=== PATIENT | male | born 1990 | race Caucasian/White ===

== ENCOUNTER 2018-08-09 19:13 | Emergency (ER) | payer OTHER ==
[2018-08-09 19:42] VITALS: BP 153/99
[2018-08-09] MEDS ORDERED: TYLENOL ONE (19:49)
[2018-08-09] MEDS ORDERED: TYLENOL PO ONE (19:51)
[2018-08-10] MEDS ORDERED: BENTYL PO ONE (00:23)
[2018-08-10] MEDS ORDERED: ZOFRAN ODT PO ONE (00:23)
[2018-08-10] MEDS ORDERED: ALUM-MAG HYDROX-SIMETH 200-200-20MG/5ML PO ONE (00:24)
[2018-08-10] MEDS ORDERED: LIDOCAINE VISCOUS 2% PO ONE (00:24)
[2018-08-10] MEDS ORDERED: NACL 0.9% 1000 ML 1,000 ML IV ONE (00:26)
--- NOTE | 2018-08-10 00:27 | Emergency Department Report ---
ED Headache HPI - General Chief Complaint: Headache Stated Complaint: H/A Time Seen by Provider: 08/09/18 23:40 Source: patient, family Exam Limitations: no limitations - History of Present Illness Initial Comments: Patient here complaining the headache today vomited 1. Pain is located on the right side of his at 7 out of 10. He denies any head injury. He also said he has a little bit of stomach upset to his epigastric area after eating some oatmeal and rice. Denies any diarrhea. Pain is still out of 10 cramping. Denies any urinary burning frequency or urgency. Denies any back pain. Headache is achy. He does not have a primary care physician as has a history of high blood pressure and wanted be treated for his high blood pressure but he has never been on any medication that he can let me know what he was on. Patient and blood pressure is 153/99. Denies any neck pain or stiffness. Denies any dizziness or visual difficulties. Denies any chest pain or shortness of breath. Denies any swelling to his legs Timing/Duration: 4-6 hours, waxing and waning Quality: severe, achy Head Injury Location: frontal Recent Head Trauma: no recent headache/trauma Modifying Factors: improves with: movement, rest Associated Symptoms: nausea/vomiting, other (stomach cramping and epigastric area). denies: confusion, fatigue, facial pain, fever/chills, flushing, loss of consciousness, nasal congestion, nasal drainage, numbness in legs/feet, rash , seizures, sinus infection, stiff neck, vision changes, weakness Allergies/Adverse Reactions: Allergies shrimp Allergy (Verified 08/09/18 19:44) Hives Home Medications: Ambulatory Orders Acetaminophen 500 mg PO Q8H PRN #12 tablet 08/10/18 Dicyclomine [Bentyl] 40 mg PO QID 3 Days #12 tablet 08/10/18 Famotidine [Pepcid] 40 mg PO QDAY 10 Days #10 tablet 08/10/18 Ondansetron [Zofran Odt] 4 mg PO Q6H PRN #20 tab.rapdis 08/10/18 ED Review of Systems ROS: Stated complaint: H/A Other details as noted in HPI Constitutional: denies: chills, fever Eyes: denies: eye pain, eye discharge, vision change ENT: denies: ear pain, throat pain, epistaxis, congestion Respiratory: denies: cough, shortness of breath, SOB with exertion, SOB at rest , stridor, wheezing Cardiovascular: denies: chest pain, palpitations, edema, syncope, paroxysmal nocturnal dyspnea Gastrointestinal: abdominal pain, nausea, vomiting. denies: diarrhea, constipation, hematemesis, melena, hematochezia Genitourinary: denies: urgency, dysuria, hematuria, discharge Musculoskeletal: denies: back pain, joint swelling, arthralgia, myalgia Skin: denies: rash, lesions Neurological: headache. denies: weakness, numbness, paresthesias, abnormal gait , vertigo Hematological/Lymphatic: denies: easy bleeding, easy bruising ED Past Medical Hx - Past Medical History Previous Medical History?: Yes Hx Hypertension: Yes - Surgical History Past Surgical History?: No - Family History Family history: hypertension - Social History Smoking Status: Former Smoker Substance Use Type: Alcohol - Medications Home Medications: Home Medications Medication Instructions Recorded Confirmed Last Taken Type Acetaminophen 500 mg PO Q8H PRN #12 tablet 08/10/18 Unknown Rx Dicyclomine [Bentyl] 40 mg PO QID 3 Days #12 tablet 08/10/18 Unknown Rx Famotidine [Pepcid] 40 mg PO QDAY 10 Days #10 tablet 08/10/18 Unknown Rx Ondansetron [Zofran Odt] 4 mg PO Q6H PRN #20 tab.rapdis 08/10/18 Unknown Rx ED Physical Exam - General Limitations: No Limitations General appearance: alert, in no apparent distress - Head Head exam: Present: atraumatic, normocephalic, normal inspection, other - Eye Eye exam: Present: normal appearance (normal exam), PERRL, EOMI. Absent: nystagmus, periorbital swelling, periorbital tenderness Pupils: Present: normal accommodation - ENT ENT exam: Present: normal exam, normal orophraynx, mucous membranes moist, TM's normal bilaterally, normal external ear exam - Neck Neck exam: Present: normal inspection, full ROM, other (no C-spine tenderness). Absent: tenderness, lymphadenopathy - Respiratory Respiratory exam: Present: normal lung sounds bilaterally. Absent: respiratory distress, chest wall tenderness - Cardiovascular Cardiovascular Exam: Present: normal rhythm, tachycardia, normal heart sounds. Absent: systolic murmur, diastolic murmur - GI/Abdominal GI/Abdominal exam: Present: soft, normal bowel sounds. Absent: distended, tenderness, guarding, rebound, rigid, organomegaly, mass, bruit, pulsatile mass , hernia - Extremities Exam Extremities exam: Present: normal inspection, full ROM, normal capillary refill , other (No cce. + 2 pulses in all extremities, no neurovascular compromise). Absent: tenderness, pedal edema, joint swelling, calf tenderness - Back Exam Back exam: Present: normal inspection, full ROM, other (ambulates without any difficulties). Absent: tenderness, CVA tenderness (R), CVA tenderness (L), muscle spasm, paraspinal tenderness, vertebral tenderness, rash noted - Neurological Exam Neurological exam: Present: alert, oriented X3, normal gait, reflexes normal. Absent: motor sensory deficit - Expanded Neurological Exam Expanded Neurological exam: Absent: innattentive, memory loss-remote event, memory loss- recent event, ataxia, receptive aphasia, expressive aphasia, total aphasia, tremor, protecting the airway Patient oriented to: Present: person, place, time Speech: Present: fluid speech Cranial nerves: EOM's Intact: Normal, Gag Reflex: Normal, Tongue Deviation: Normal, Nystagmus: Normal, Facial Sensation: Normal Cerebellar function: Romberg: Normal Upper motor neuron: Pronator Drift: Normal, Sensory Extinction: Normal Sensory exam: Upper Extremity Light Touch: Normal, Upper Extremity Temperature: Normal, UE 2 Point Discrimination: Normal, Lower Extremity Light Touch: Normal, Lower Extremity Temperature: Normal, LE 2 Point Discrimination: Normal Motor strength exam: RUE: 5, LUE: 5, RLE: 5, LLE: 5 Best Eye Response ([place]): (4) open spontaneously Best Motor Response ([place]): (6) obeys commands Best Verbal Response ([place]): (5) oriented [place] Total: 15 - Psychiatric Psychiatric exam: Present: normal affect, normal mood - Skin Skin exam: Present: warm, dry, intact, normal color. Absent: rash ED Course Vital Signs 08/09/18 08/09/18 19:30 19:44 Temperature 99.0 F 99 F Pulse Rate 114 H 111 H Respiratory 18 18 Rate Blood Pressure 153/99 153/99 O2 Sat by Pulse 95 Oximetry Vital Signs 10/07/18 10/07/18 10/08/18 19:30 19:44 02:39 Temperature 99.0 F 99 F Pulse Rate 114 H 111 H 78 Respiratory 18 18 Rate Blood Pressure 153/99 153/99 O2 Sat by Pulse 95 Oximetry - Reevaluation(s) Reevaluation #1: 08/10/18 00:23 Patient given Zofran 8 mg ODT for nausea and Bentyl 40 mg by mouth for stomach upset. Lidocaine 15 mL and Maalox 30 mL for stomach upset and will be started on normal saline. Reevaluation #2: 08/10/18 01:21 Patient is stable and in no acute distress. Reevaluation #3: 08/10/18 01:46 Patient reports that he is feeling better after IV fluid and medication given. Still awaiting CT scan. Reevaluation #4: 08/10/18 02:38 Patient is stable and studies feeling better. CT scan with normal exam ED Medical Decision Making - Radiology Data Radiology results: report reviewed CT scan of the brain and had without contrast dictated by radiologist and report reviewed by myself. Report reviewed normal exam. - Medical Decision Making This is a 28-year-old male here complaining a headache and abdominal cramping after eating rice and oatmeal. He said he has a history of high blood pressure and wanted to be treated for his blood pressure in the emergency room because he does not have a primary care. Blood pressure was 153/99. CT scan of the head and brain without contrast dictated by radiologist and reported to myself and no acute findings. Assessment/plan Headache-better with normal saline 1 L. Received Tylenol 650 mg in triage area. Will be sent home on Tylenol plain Abdominal cramp-better with Maalox 30 mL and lidocaine 15 mL. He also received Bentyl 40 mg. Patient will be sent home on Pepcid and Bentyl. Nausea and vomiting -better with Zofran 8 mg ODT and he will be sent home on Zofran and Pepcid Resuscitation via seismic interpreter is diagnosis, CT scan finding and that he needs to follow up with primary care doctor and if he does not have access he needs to go to [facility] for management of chronic hypertension. Information given and DASH diet and high blood pressure. Patient is stable, vital signs are stable he is afebrile and the studies feel a lot better discharged home with prescription for Zofran, Pepcid, Tylenol plain and Bentyl. He is to follow-up with primary care physician in one to 2 days and also I gave him referral to Dr. Macedo for neurology consult - Differential Diagnosis intracranial abnormality, gastroenteritis Critical care attestation.: If time is entered above; I have spent that time in minutes in the direct care of this critically ill patient, excluding procedure time. ED Disposition Clinical Impression: Elevated blood pressure reading with diagnosis of hypertension, Stomach cramps Headache Qualifiers: Headache type: unspecified Headache chronicity pattern: unspecified pattern Intractability: not intractable Qualified Code(s): R51 - Headache Nausea & vomiting Qualifiers: Vomiting type: unspecified Vomiting Intractability: non-intractable Qualified Code(s): R11.2 - Nausea with vomiting, unspecified Disposition: TO HOME OR SELFCARE Is pt being admited?: No Does the pt Need Aspirin: No Condition: Stable Instructions: Gastroenteritis (ED), Acute Headache (ED), Acute Nausea and Vomiting (ED), Abdominal Pain (ED), DASH Eating Plan (ED), Hypertension (ED) Additional Instructions: He is follow-up with outside [facility] regarding your headache and to manage your high blood pressure see referral to neurologist regarding blood pressure management Keep a log a few blood pressure daily preferably when you wake up in the morning and and record it take to primary care physician for evaluation. Take medication as prescribed for nausea and stomach upset if your condition worsens, return to the emergency room Prescriptions: Acetaminophen 500 mg PO Q8H PRN #12 tablet PRN Reason: pain Dicyclomine [Bentyl] 40 mg PO QID 3 Days #12 tablet Famotidine [Pepcid] 40 mg PO QDAY 10 Days #10 tablet Ondansetron [Zofran Odt] 4 mg PO Q6H PRN #20 tab.rapdis PRN Reason: Nausea And Vomiting Referrals: SERGO MACEDO MD [Staff Physician] - 08/12/18 [facility] [Outside] - 08/12/18 PRIMARY MD DARIO [Primary Care Provider] - 08/12/18 Forms: Work/School Release Form(ED)
--- NOTE | 2018-08-10 01:58 | Cat Scan Report ---
FINAL REPORT PROCEDURE: CT HEAD/BRAIN WO CON TECHNIQUE: Computerized tomography of the head was performed without contrast material. HISTORY: headache with vomiting ?1 COMPARISON: No prior studies are available for comparison. FINDINGS: Skull and scalp: Normal. Paranasal sinuses: Normal. Ventricles and subarachnoid spaces: Normal. Cerebrum: No evidence of hemorrhage, acute infarction or mass . Cerebellum and brainstem: No evidence of hemorrhage, acute infarction or mass. Vasculature: Normal. Comments: None. IMPRESSION: Normal Examination
== END 2018-08-10 02:56 | disposition home or self-care (01) ==
LOC: ED 19:13
DX: R03.0 Elevated blood-pressure reading, without diagnosis of hypertension (principal); R11.2 Nausea with vomiting, unspecified; R10.13 Epigastric pain; I10 Essential (primary) hypertension; Z87.891 Personal history of nicotine dependence
CPT/HCPCS: 70450; 99283; J7030; Q0162

== ENCOUNTER 2019-04-11 21:05 | Emergency (ER) | payer OTHER ==
--- NOTE | 2019-04-11 21:14 | Emergency Department Report ---
Blank Doc - Documentation Documentation: This is a 28-year-old male that presents with abdominal pain with n/v. This initial assessment/diagnostic orders/clinical plan/treatment(s) is/are subject to change based on patient's health status, clinical progression and re- assessment by fellow clinical providers in the ED. Further treatment and workup at subsequent clinical providers discretion. Patient/guardians urged not to elope from the ED as their condition may be serious if not clinically assessed and managed. Initial orders include: 1- Patient sent to [facility] for further evaluation and treatment 2- labs 3- UA
[2019-04-11 21:16] VITALS: BP 138/89
[2019-04-11] MEDS ORDERED: NACL 0.9% 1000 ML 1,000 ML IV ONE (21:41)
[2019-04-11] MEDS ORDERED: ZOFRAN IV ONE (21:41)
[2019-04-11 21:43] LABS: Basophils % (Auto) 0.7 % (0.0-1.8); Eosinophils # (Auto) 0.1 K/mm3 (0.0-0.4); Hematocrit 42.2 % (35.5-45.6); Hemoglobin 14.4 gm/dl (11.8-15.2); Lymphocytes # (Auto) 1.7 K/mm3 (1.2-5.4); Lymphocytes % (Auto) 32.2 % (13.4-35.0); Mean Corpuscular HGB Conc 34 % (32-34); Mean Corpuscular Volume 72 fl (84-94); Monocytes # (Auto) 0.6 K/mm3 (0.0-0.8); Monocytes % (Auto) 10.5 % (0.0-7.3); Platelet Count 265 K/mm3 (140-440); Red Blood Count 5.89 M/mm3 (3.65-5.03); Red Cell Distribution Width 14.5 % (13.2-15.2)
[2019-04-11 21:44] LABS: Bilirubin,Urine NEG (Negative); Blood,Urine NEG (Negative); Color,Urine Yellow (Yellow); Protein,Urine <15 mg/dL mg/dL (Negative); Urobilinogen,Urine < 2.0 mg/dL (<2.0); WBC,Urine < 1.0 /HPF (0.0-6.0)
[2019-04-11 21:57] LABS: Alanine Aminotransferase 56 units/L (7-56); Albumin 4.4 g/dL (3.9-5); BUN/Creatinine Ratio 19; Blood Urea Nitrogen 15 mg/dL (9-20); Hemolysis Index 22
--- NOTE | 2019-04-11 22:25 | Emergency Department Report ---
ED Abdominal Pain HPI - General Chief Complaint: Abdominal Pain Stated Complaint: ABD PAIN/HEADACHE Time Seen by Provider: 04/11/19 21:13 Source: patient Mode of arrival: Ambulatory Limitations: No Limitations - History of Present Illness Initial Comments: This is a 28-year-old male with hx of htn and PUD, no take ppi or h2 blockers at this time. that presents with abdominal pain with n/v x today, LUQ, with nausea and vomiting, last n/v this afternoon last po intake this afternoon, pain is 5/10 aching LUQ and LLQ pt denies fever . MD Complaint: abdominal pain Onset/Timin -: days(s) Location: LUQ, LLQ Radiation: LUQ, LLQ Migration to: LLQ Severity: moderate Severity scale (0 -10): 5 Quality: cramping, aching Consistency: constant Improves With: nothing Worsens With: eating Context: other (PUD) Associated Symptoms: nausea, vomiting. denies: diarrhea, fever, chills, constipation, dysuria, hematemesis, melena, hematuria, syncope - Related Data Previous Rx's Medication Instructions Recorded Last Taken Type Acetaminophen 500 mg PO Q8H PRN #12 tablet 08/10/18 Unknown Rx Dicyclomine [Bentyl] 40 mg PO QID 3 Days #12 tablet 08/10/18 Unknown Rx Famotidine [Pepcid] 40 mg PO QDAY 10 Days #10 tablet 08/10/18 Unknown Rx Ondansetron [Zofran Odt] 4 mg PO Q6H PRN #20 tab.rapdis 08/10/18 Unknown Rx Dicyclomine [Bentyl] 20 mg PO QID #10 tablet 03/15/19 Unknown Rx Diphenoxylate/Atropine [Lomotil] 1 tab PO Q4H PRN #10 tablet 03/15/19 Unknown Rx Famotidine [Pepcid] 20 mg PO BID #20 tablet 03/15/19 Unknown Rx Ondansetron [Zofran Odt] 4 mg PO Q8HR #10 tab.rapdis 03/15/19 Unknown Rx Dicyclomine [Bentyl] 10 mg PO QID PRN #30 capsule 04/11/19 Unknown Rx Omeprazole 20 mg PO DAILY #30 tablet. 04/11/19 Unknown Rx Ondansetron [Zofran Odt] 4 mg PO Q8HR PRN #12 tab.rapdis 04/11/19 Unknown Rx Allergies Allergy/AdvReac Type Severity Reaction Status Date / Time shellfish derived Allergy Hives Verified 04/11/19 21:14 shrimp Allergy Hives Verified 08/09/18 19:44 ED Review of Systems ROS: Stated complaint: ABD PAIN/HEADACHE Other details as noted in HPI ED Past Medical Hx - Past Medical History Previous Medical History?: Yes Hx Hypertension: Yes Additional medical history: PUD - Surgical History Past Surgical History?: No - Social History Smoking Status: Never Smoker Substance Use Type: None - Medications Home Medications: Home Medications Medication Instructions Recorded Confirmed Last Taken Type Acetaminophen 500 mg PO Q8H PRN #12 tablet 08/10/18 Unknown Rx Dicyclomine [Bentyl] 40 mg PO QID 3 Days #12 tablet 08/10/18 Unknown Rx Famotidine [Pepcid] 40 mg PO QDAY 10 Days #10 tablet 08/10/18 Unknown Rx Ondansetron [Zofran Odt] 4 mg PO Q6H PRN #20 tab.rapdis 08/10/18 Unknown Rx Dicyclomine [Bentyl] 20 mg PO QID #10 tablet 03/15/19 Unknown Rx Diphenoxylate/Atropine [Lomotil] 1 tab PO Q4H PRN #10 tablet 03/15/19 Unknown Rx Famotidine [Pepcid] 20 mg PO BID #20 tablet 03/15/19 Unknown Rx Ondansetron [Zofran Odt] 4 mg PO Q8HR #10 tab.rapdis 03/15/19 Unknown Rx Dicyclomine [Bentyl] 10 mg PO QID PRN #30 capsule 04/11/19 Unknown Rx Omeprazole 20 mg PO DAILY #30 tablet. 04/11/19 Unknown Rx Ondansetron [Zofran Odt] 4 mg PO Q8HR PRN #12 tab.rapdis 04/11/19 Unknown Rx ED Physical Exam - General Limitations: No Limitations General appearance: alert, in no apparent distress - Head Head exam: Present: atraumatic, normocephalic, normal inspection - Eye Eye exam: Present: normal appearance, PERRL, EOMI Pupils: Present: normal accommodation - ENT ENT exam: Present: normal orophraynx, mucous membranes moist - Neck Neck exam: Present: normal inspection, full ROM. Absent: tenderness, meningismus, lymphadenopathy, thyromegaly - Respiratory Respiratory exam: Present: normal lung sounds bilaterally. Absent: respiratory distress, wheezes, stridor, chest wall tenderness - Cardiovascular Cardiovascular Exam: Present: regular rate, normal rhythm, normal heart sounds. Absent: systolic murmur, diastolic murmur, rubs, gallop - GI/Abdominal GI/Abdominal exam: Present: soft, distended, tenderness (LUQ LLQ ), normal bowel sounds. Absent: guarding, rebound, rigid, organomegaly, bruit, hernia - Rectal Rectal exam: Present: deferred - Extremities Exam Extremities exam: Present: normal inspection, full ROM, normal capillary refill. Absent: tenderness, pedal edema - Back Exam Back exam: Present: normal inspection, full ROM. Absent: tenderness, CVA tenderness (R), CVA tenderness (L), muscle spasm, paraspinal tenderness, rash noted - Neurological Exam Neurological exam: Present: alert, oriented X3, CN II-XII intact, normal gait - Psychiatric Psychiatric exam: Present: normal affect, normal mood - Skin Skin exam: Present: warm, dry, intact, normal color. Absent: rash ED Course Vital Signs 04/11/19 21:14 Temperature 97.9 F Pulse Rate 91 H Respiratory 18 Rate Blood Pressure 138/89 ED Medical Decision Making - Lab Data Result diagrams: 04/11/19 21:23 04/11/19 21:23 - Radiology Data Radiology results: report reviewed, image reviewed Ordering Physician: EDWIN RICHARDSON NP Date of Service: 04/11/19 Procedure(s): CT abdomen pelvis wo con Accession Number(s): [id number] cc: EDWIN RICHARDSON NP PROCEDURE: CT ABDOMEN PELVIS WO CON TECHNIQUE: Computerized axial tomography of the abdomen and pelvis was performed without intravenous contrast. This study is performed without intravascular contrast material and its sensitivity for abdominal and pelvic pathology, including neoplasms, inflammation, abscess, free fluid, thrombosis, arterial dissection and infarction, is reduced compared with a contrast enhanced study. HISTORY: upper abd pain COMPARISONS: None . FINDINGS: Visualized lower thorax: No significant abnormality. Liver: Normal size and attenuation. Spleen: Normal size and attenuation. Gallbladder and biliary system: Normal. Pancreas: Normal. Adrenals: Normal. Kidneys: Normal. GI tract: The stomach is normal. The small bowel has normal caliber without obstruction. No ileus or enteritis. Cecum, appendix and colon are normal . Lymph nodes and mesentery: Normal. Vasculature: Normal.. Bladder: Normal. Reproductive organs: Normal. Peritoneum: No free fluid. Musculoskeletal structures: No significant abnormality. Other: None. IMPRESSION: Normal examination of the abdomen and pelvis . This document is electronically signed by Jessi Ackerman DO., April 11 2019 11:37:40 PM ET Transcribed By: [facility] Dictated By: JESSI ACKERMAN MD Electronically Authenticated By: JESIS ACKERMAN MD Signed Date/Time: 04/11/192338 DD/ 33 TD/TT: 04/11/192333 - Medical Decision Making CT scan si normal no obstruction or bleeding , pt has hx of pud, pain is now improved plan, carafate, omeprozole, bentyl follow up with pcp in 2-3 days given referral to [facility], and [facility] pt verbalized agreement and understanding of discharge plan, pt for dc to home in stable condition at this time. Critical care attestation.: If time is entered above; I have spent that time in minutes in the direct care of this critically ill patient, excluding procedure time. ED Disposition Clinical Impression: Nausea and vomiting Qualifiers: Vomiting type: unspecified Vomiting Intractability: non-intractable Qualified Code(s): R11.2 - Nausea with vomiting, unspecified Abdominal pain Qualifiers: Abdominal location: lower abdomen, unspecified Qualified Code(s): R10.30 - Lower abdominal pain, unspecified Disposition: DC-01 TO HOME OR SELFCARE Is pt being admited?: No Does the pt Need Aspirin: No Condition: Stable Instructions: Acute Nausea and Vomiting (ED), Abdominal Pain (ED) Prescriptions: Dicyclomine [Bentyl] 10 mg PO QID PRN #30 capsule PRN Reason: abdominal spasm Omeprazole 20 mg PO DAILY #30 tablet. Ondansetron [Zofran Odt] 4 mg PO Q8HR PRN #12 tab.rapdis PRN Reason: Nausea And Vomiting Referrals: SHANTHI DE LA VEGA MD [Primary Care Provider] - 3-5 Days [facility] [Provider Group] - 3-5 Days [facility] [Outside] - 3-5 Days Forms: Work/School Release Form(ED) Time of Disposition: 23:59
--- NOTE | 2019-04-11 23:39 | Cat Scan Report ---
PROCEDURE: CT ABDOMEN PELVIS WO CON TECHNIQUE: Computerized axial tomography of the abdomen and pelvis was performed without intravenous contrast. This study is performed without intravascular contrast material and its sensitivity for ab dominal and pelvic pathology, including neoplasms, inflammation, abscess, free fluid, thrombosis, art erial dissection and infarction, is reduced compared with a contrast enhanced study. HISTORY: upper abd pain COMPARISONS: None . FINDINGS: Visualized lower thorax: No significant abnormality. Liver: Normal size and attenuation. Spleen: Normal size and attenuation. Gallbladder and biliary system: Normal. Pancreas: Normal. Adrenals: Normal. Kidneys: Normal. GI tract: The stomach is normal. The small bowel has normal caliber without obstruction. No ileus or enteritis. Cecum, appendix and colon are normal . Lymph nodes and mesentery: Normal. Vasculature: Normal.. Bladder: Normal. Reproductive organs: Normal. Peritoneum: No free fluid. Musculoskeletal structures: No significant abnormality. Other: None. IMPRESSION: Normal examination of the abdomen and pelvis . This document is electronically signed by Jessi Ackerman DO., April 11 2019 11:37:40 PM ET
== END 2019-04-12 00:09 | disposition home or self-care (01) ==
LOC: ED 21:05
DX: R10.12 Left upper quadrant pain (principal); R10.32 Left lower quadrant pain; R11.2 Nausea with vomiting, unspecified; I10 Essential (primary) hypertension; Z91.013 Allergy to seafood
CPT/HCPCS: 36415; 74176; 80053; 81001; 83690; 85025; 96361; 96374; 99284; J2405; J7030

== ENCOUNTER 2022-03-12 23:42 | Emergency (ER) | payer OTHER ==
[2022-03-13 07:17] LABS: Hematocrit 43.3 % (35.5-45.6); Hemoglobin 13.5 gm/dl (11.8-15.2); Mean Corpuscular HGB Conc 31 % (32-34); Mean Corpuscular Volume 72 fl (84-94); Platelet Count 301 K/mm3 (140-440); Red Blood Count 6.05 M/mm3 (3.65-5.03); Red Cell Distribution Width 15.2 % (13.2-15.2)
[2022-03-13 07:44] LABS: Alanine Aminotransferase 65 units/L (7-56); Albumin 4.6 g/dL (3.9-5); BUN/Creatinine Ratio 13; Blood Urea Nitrogen 10 mg/dL (9-20); Hemolysis Index 5
[2022-03-13] MEDS ORDERED: SODIUM CHLORIDE 0.9% 1000 ML 1,000 ML IV ONE (08:03)
[2022-03-13] MEDS ORDERED: MORPHINE 2 MG/1 ML INJ IM ONE (08:03)
[2022-03-13] MEDS ORDERED: LIDOCAINE VISCOUS 2% 15 ML ORAL LIQD PO ONE (08:05)
--- NOTE | 2022-03-13 08:06 | Emergency Department Report ---
ED General Adult HPI - General Chief complaint: Abdominal Pain Stated complaint: STOMACH PAIN PUI?: No Time Seen by Provider: 03/13/22 07:58 Source: patient Mode of arrival: Ambulatory Limitations: No Limitations - History of Present Illness Initial comments: This is a 31-year-old male who came in today with concerns of epigastric pain which according patient is a burning sensation for the past 1 to 2 days. According patient is worse at nighttime. Patient also endorsed headache and also feeling subjective short of breath. Patient denies any other discomfort such as fever chill night sweat dizziness blurred vision lightheadedness tinnitus ear pain runny nose sore throat loss of taste loss of smell chest pain palpitation cough nausea vomiting diarrhea constipation dysuria myalgia arthralgia new rash and heat or cold intolerance. Severity scale (0 -10): 8 - Related Data Previous Rx's Medication Instructions Recorded Last Taken Type Acetaminophen 500 mg PO Q8H PRN #12 tablet 08/10/18 Unknown Rx Dicyclomine [Bentyl] 40 mg PO QID 3 Days #12 tablet 08/10/18 Unknown Rx Famotidine [Pepcid] 40 mg PO QDAY 10 Days #10 tablet 08/10/18 Unknown Rx Ondansetron [Zofran Odt] 4 mg PO Q6H PRN #20 tab.rapdis 08/10/18 Unknown Rx Dicyclomine [Bentyl] 20 mg PO QID #10 tablet 03/15/19 Unknown Rx Diphenoxylate/Atropine [Lomotil] 1 tab PO Q4H PRN #10 tablet 03/15/19 Unknown Rx Famotidine [Pepcid] 20 mg PO BID #20 tablet 03/15/19 Unknown Rx Ondansetron [Zofran Odt] 4 mg PO Q8HR #10 tab.rapdis 03/15/19 Unknown Rx Dicyclomine [Bentyl] 10 mg PO QID PRN #30 capsule 04/11/19 Unknown Rx Omeprazole 20 mg PO DAILY #30 tablet. 04/11/19 Unknown Rx Ondansetron [Zofran Odt] 4 mg PO Q8HR PRN #12 tab.rapdis 04/11/19 Unknown Rx Omeprazole 20 mg PO DAILY 30 Days #30 03/13/22 Unknown Rx Allergies Allergy/AdvReac Type Severity Reaction Status Date / Time shellfish derived Allergy Intermediate Hives Verified 03/13/22 09:46 shrimp Allergy Hives Verified 03/13/22 09:46 ED Review of Systems ROS: Stated complaint: STOMACH PAIN Other details as noted in HPI Constitutional: no symptoms reported, see HPI Eyes: as per HPI ENT: as per HPI Respiratory: see HPI, shortness of breath. denies: cough, orthopnea, SOB with exertion, SOB at rest, stridor, wheezing Cardiovascular: as per HPI Endocrine: no symptoms reported Gastrointestinal: abdominal pain. denies: nausea, vomiting, diarrhea, co nstipation, hematemesis, melena, hematochezia Musculoskeletal: as per HPI Skin: as per HPI Neurological: as per HPI, headache Psychiatric: as per HPI Hematological/Lymphatic: as per HPI ED Past Medical Hx - Past Medical History Previous Medical History?: Yes Hx Hypertension: Yes Additional medical history: PUD - Social History Smoking Status: Never Smoker Substance Use Type: None - Medications Home Medications: Home Medications Medication Instructions Recorded Confirmed Last Taken Type Acetaminophen 500 mg PO Q8H PRN #12 tablet 08/10/18 Unknown Rx Dicyclomine [Bentyl] 40 mg PO QID 3 Days #12 tablet 08/10/18 Unknown Rx Famotidine [Pepcid] 40 mg PO QDAY 10 Days #10 tablet 08/10/18 Unknown Rx Ondansetron [Zofran Odt] 4 mg PO Q6H PRN #20 tab.rapdis 08/10/18 Unknown Rx Dicyclomine [Bentyl] 20 mg PO QID #10 tablet 03/15/19 Unknown Rx Diphenoxylate/Atropine [Lomotil] 1 tab PO Q4H PRN #10 tablet 03/15/19 Unknown Rx Famotidine [Pepcid] 20 mg PO BID #20 tablet 03/15/19 Unknown Rx Ondansetron [Zofran Odt] 4 mg PO Q8HR #10 tab.rapdis 03/15/19 Unknown Rx Dicyclomine [Bentyl] 10 mg PO QID PRN #30 capsule 04/11/19 Unknown Rx Omeprazole 20 mg PO DAILY #30 tablet. 04/11/19 Unknown Rx Ondansetron [Zofran Odt] 4 mg PO Q8HR PRN #12 tab.rapdis 04/11/19 Unknown Rx Omeprazole 20 mg PO DAILY 30 Days #30 05/11/22 Unknown Rx ED Physical Exam - General Limitations: No Limitations General appearance: alert, in no apparent distress - Head Head exam: Present: atraumatic, normocephalic, normal inspection - Eye Eye exam: Present: normal appearance, PERRL, EOMI - ENT ENT exam: Present: normal exam, mucous membranes moist - Neck Neck exam: Present: normal inspection - Respiratory Respiratory exam: Present: normal lung sounds bilaterally - Cardiovascular Cardiovascular Exam: Present: regular rate, normal rhythm - GI/Abdominal GI/Abdominal exam: Present: soft, tenderness (EPIGASTRIC REGION ON PALPATION; NO TENDERNESS ON RUQ OR RLQ OR LUQ OR LLQ). Absent: distended - Extremities Exam Extremities exam: Present: normal inspection, full ROM - Back Exam Back exam: Present: normal inspection, full ROM - Neurological Exam Neurological exam: Present: alert, altered, oriented X3, CN II-XII intact - Psychiatric Psychiatric exam: Present: normal affect, normal mood - Skin Skin exam: Present: normal color ED Course Vital Signs 03/12/22 03/13/22 03/13/22 23:53 09:43 09:45 Temperature 98.1 F Pulse Rate 102 H 69 Respiratory 16 16 Rate Blood Pressure 137/87 123/84 [Right] O2 Sat by Pulse 98 99 99 Oximetry ED Medical Decision Making - Lab Data Result diagrams: 03/13/22 07:04 03/13/22 07:04 - Medical Decision Making PER PATIENT, SYMPTOMS RESOLVED AFTER THE LIDOCINE AND MAALOX; LABS AND IMAGE ARE UNREMARKABLE. INFORMED TO FOLLOW UP WITH PCP. WILL D/C W/ PPI MEDICATION FOR 30 DAYS. Critical care attestation.: If time is entered above; I have spent that time in minutes in the direct care of this critically ill patient, excluding procedure time. ED Disposition Clinical Impression: GERD (gastroesophageal reflux disease) Disposition: 01 HOME / SELF CARE / HOMELESS Is pt being admited?: No Does the pt Need Aspirin: No Condition: Stable Instructions: Heartburn Additional Instructions: Make a follow-up appointment with your primary care provider to be seen within 3 days for further ER follow-up visit and evaluation. Prescriptions: Omeprazole 20 mg PO DAILY 30 Days #30 Time of Disposition: 10:42
--- NOTE | 2022-03-13 08:31 | XRay Report ---
XR CHEST 1VIEW INDICATION / CLINICAL INFORMATION: Shortness of breath. COMPARISON: None available. FINDINGS: SUPPORT DEVICES: None. HEART /PULMONARY VASCULATURE: No significant abnormality. LUNGS / PLEURA: No significant pulmonary or pleural abnormality. No pneumothorax. ADDITIONAL FINDINGS: No significant additional findings. IMPRESSION: 1. No acute findings. Signer Name: Mau Gasca MD Signed: 03/13/2022 8:26 AM Workstation Name: [id number]
[2022-03-13 09:11] LABS: Bilirubin,Urine NEG (Negative); Blood,Urine NEG (Negative); Color,Urine Colorless (Yellow); Protein,Urine <15 mg/dL mg/dL (Negative); Urobilinogen,Urine < 2.0 mg/dL (<2.0)
--- NOTE | 2022-03-13 09:20 | Cat Scan Report ---
CT ABDOMEN AND PELVIS WITHOUT CONTRAST INDICATION / CLINICAL INFORMATION: EPIGASTIC PAIN. TECHNIQUE: Axial CT images were obtained through the abdomen and pelvis without IV contrast. All CT scans at this location are performed using CT dose reduction for ALARA by means of automated exposure control. COMPARISON: None available. FINDINGS: LOWER CHEST: No significant abnormality LIVER: Nonspecific mild hepatomegaly, measuring 18.5 cm. GALLBLADDER/BILIARY TREE: No significant abnormality PANCREAS: No significant abnormality SPLEEN: No significant abnormality ADRENALS: No significant abnormality RIGHT KIDNEY / URETER: No significant abnormality LEFT KIDNEY / URETER: No significant abnormality URINARY BLADDER: Bladder is partially decompressed, though grossly unremarkable. REPRODUCTIVE ORGANS: No significant abnormality STOMACH / BOWEL: Small bowel is normal in caliber. The colon is unremarkable. The appendix is normal in caliber. LYMPH NODES: No significant adenopathy. VASCULATURE: No significant abnormality. OTHER: No free air, free fluid, or focal fluid collection is identified. SKELETAL SYSTEM: No acute osseous findings. IMPRESSION: 1. No acute abnormality of the abdomen or pelvis. 2. Nonspecific mild hepatomegaly. Signer Name: Mau Gasca MD Signed: 03/13/2022 9:15 AM Workstation Name: [id number]
[2022-03-13 12:27] VITALS: BP 123/79
== END 2022-03-13 11:00 | disposition home or self-care (01) ==
LOC: ED 23:42
DX: K21.9 Gastro-esophageal reflux disease without esophagitis (principal); I10 Essential (primary) hypertension; Z91.013 Allergy to seafood; Z79.899 Other long term (current) drug therapy
CPT/HCPCS: 36415; 71045; 74176; 80053; 81001; 83690; 85027; 96360; 96361; 96372; 99284; J2270; J7030